=== PATIENT | male | born 1975 | race Caucasian/White ===

== ENCOUNTER → 2016-12-29 | Outpatient (CLI) | payer BC ==
[2016-12-29 10:44] LABS: ESTIMATED AVERAGE GLUCOSE 140 mg/dl; HA1C FLAG Normal (Normal)
== END | disposition home or self-care (01) ==
LOC: C.LAB1850 09:16
PROVIDERS: ATTEND Internal Medicine
DX: I10 Essential (primary) hypertension (principal)

== ENCOUNTER → 2017-03-04 | Outpatient (CLI) | payer BC ==
[2017-03-04 13:22] LABS: BASO % 0.8 %; BASO ABS # 0.09 K/uL (0-0.2); COMPLETE YES; EOS % 3.9 %; HEMATOCRIT 46.7 % (42-52); IG% 0.2 %; LYMPH % 17.8 %; LYMPH ABS # 2.03 K/uL (1.2-3.4); MEAN CELL VOLUME 81.9 fL (80-100); MEAN CORPUSCULAR HEMOGLOBIN 27.7 pg (25-34); MEAN CORPUSCULAR HGB CONC 33.8 g/dl (32-36); MONO % 5.1 %; NEUT % 72.2 %; PLATELET COUNT 243 K/uL (130-400); WHITE BLOOD COUNT 11.39 K/uL (4.8-10.8)
[2017-03-04 13:46] LABS: ALT/SGPT 36 U/L (12-78); AST/SGOT 13 U/L (15-37); BLOOD UREA NITROGEN 25 mg/dl (7-18); BUN/CREATININE RATIO 15.8 (10-20); CALCIUM 9.3 mg/dl (8.5-10.1); CARBON DIOXIDE 31 mmol/L (21-32); CHLORIDE 105 mmol/L (98-107); GLUCOSE 123 mg/dl (70-99); POTASSIUM 4.3 mmol/L (3.5-5.1); SODIUM 139 mmol/L (136-145)
[2017-03-04 13:47] LABS: ESTIMATED AVERAGE GLUCOSE 143 mg/dl; HA1C FLAG Normal (Normal)
[2017-03-04 13:49] LABS: CHOLESTEROL 129 mg/dl (0-200); CHOLESTEROL/HDL RATIO 2.9; HDL CHOLESTEROL 44 mg/dl; LDL CHOLESTEROL CALCULATED 55 mg/dl; TRIGLYCERIDES 149 mg/dl (0-150); VERY LOW DENSITY LIPOPROT CALC 30 mg/dl
[2017-03-04 15:21] LABS: RATIO 217.7 mcg/mg (0-30.0)
== END | disposition home or self-care (01) ==
LOC: C.LAB1850 12:44
PROVIDERS: ATTEND Internal Medicine
DX: E78.5 Hyperlipidemia, unspecified (principal)

== ENCOUNTER → 2017-06-15 | Outpatient (CLI) | payer BC ==
[2017-06-15 12:14] LABS: ESTIMATED AVERAGE GLUCOSE 148 mg/dl; HA1C FLAG Normal (Normal)
== END | disposition home or self-care (01) ==
LOC: C.LAB1850 10:45
PROVIDERS: ATTEND Internal Medicine
DX: E78.5 Hyperlipidemia, unspecified (principal)

== ENCOUNTER → 2017-09-15 | Outpatient (CLI) | payer BC ==
--- NOTE | 2017-09-15 09:49 | DIAGNOSTIC IMAGING REPORT ---
ULTRASOUND L VENOUS DOPP LOWER EXT UNILAT CLINICAL HISTORY: M79.605 left leg pain COMPARISON STUDY: No previous studies for comparison. FINDINGS: Real-time and color flow Doppler imaging were performed. Flow was seen within the femoral, popliteal and calf veins with no intraluminal thrombus demonstrated. The saphenous vein is patent. No popliteal cyst is visualized. IMPRESSION: No evidence of left lower extremity DVT. Electronically signed by: Ebenezer Martinez M.D. 09/15/2017 9:48 AM Dictated Date/Time: 09/15/2017 9:47 AM
== END | disposition home or self-care (01) ==
LOC: C.ULTR 09:07
PROVIDERS: ATTEND Physician Assistant
DX: M79.605 Pain in left leg (principal)

== ENCOUNTER → 2017-09-28 | Outpatient (CLI) | payer BC ==
--- NOTE | 2017-09-28 08:41 | DIAGNOSTIC IMAGING REPORT ---
LEFT KNEE RADIOGRAPHS WITH COMPARISON STANDING AP RADIOGRAPH OF THE RIGHT KNEE CLINICAL HISTORY: Left knee pain. COMPARISON: None FINDINGS: Comparison standing AP radiograph of the knee demonstrates minimal osteophytosis within the medial and lateral compartments. Alignment of the left knee is in anatomic. There is no fracture, joint effusion or osseous lesion. Joint spaces are preserved. There is mild osteophytosis of the lateral patellofemoral compartments. IMPRESSION: 1. No acute fracture or joint effusion of the left knee. 2. Slight lateral patellar tilt. 3. Preserved joint spaces with mild osteophytosis within the lateral and patellofemoral compartments of the left knee. Electronically signed by: Allan Kevin M.D. 09/28/2017 8:40 AM Dictated Date/Time: 09/28/2017 8:34 AM
== END | disposition home or self-care (01) ==
LOC: C.RDSM 10:07
PROVIDERS: ATTEND Physician Assistant
DX: M25.562 Pain in left knee (principal); M25.762 Osteophyte, left knee

== ENCOUNTER → 2017-10-06 | Outpatient (CLI) | payer BC ==
[2017-10-06 12:16] LABS: BASO % 0.9 %; BASO ABS # 0.09 K/uL (0-0.2); COMPLETE YES; EOS % 5.8 %; IG% 0.3 %; LYMPH % 28.3 %; LYMPH ABS # 2.71 K/uL (1.2-3.4); MEAN CELL VOLUME 83.3 fL (80-100); MEAN CORPUSCULAR HEMOGLOBIN 28.5 pg (25-34); MEAN CORPUSCULAR HGB CONC 34.2 g/dl (32-36); MEAN PLATELET VOLUME 10.2 fL (7.4-10.4); MONO % 6.7 %; PLATELET COUNT 231 K/uL (130-400); RED BLOOD COUNT 5.76 M/uL (4.7-6.1); WHITE BLOOD COUNT 9.56 K/uL (4.8-10.8)
[2017-10-06 12:20] LABS: URINE APPEARANCE CLEAR (CLEAR); URINE BILIRUBIN NEG (NEG); URINE COLOR ORANGE; URINE NITRITE NEG (NEG); URINE PH 6.5 (4.5-7.5); URINE SPECIFIC GRAVITY 1.014 (1.000-1.030); UROBILINOGEN NEG (NEG)
[2017-10-06 12:23] LABS: MANUAL MICROSCOPIC REQUIRED? NO; REVIEW REQ? NO
[2017-10-06 12:44] LABS: ALT/SGPT 39 U/L (12-78); AST/SGOT 19 U/L (15-37); BLOOD UREA NITROGEN 23 mg/dl (7-18); BUN/CREATININE RATIO 14.6 (10-20); CALCIUM 9.1 mg/dl (8.5-10.1); CARBON DIOXIDE 30 mmol/L (21-32); CHLORIDE 102 mmol/L (98-107); CHOLESTEROL 159 mg/dl (0-200); CREATININE 1.59 mg/dl (0.60-1.40); GLUCOSE 83 mg/dl (70-99); POTASSIUM 4.3 mmol/L (3.5-5.1); SODIUM 137 mmol/L (136-145); TRIGLYCERIDES 120 mg/dl (0-150); VERY LOW DENSITY LIPOPROT CALC 24 mg/dl
[2017-10-06 12:48] LABS: ESTIMATED AVERAGE GLUCOSE 157 mg/dl; HA1C FLAG Normal (Normal)
[2017-10-06 12:54] LABS: CHOLESTEROL/HDL RATIO 3.2; HDL CHOLESTEROL 49 mg/dl; LDL CHOLESTEROL CALCULATED 86 mg/dl; THYROID STIMULATING HORMONE 0.935 uIu/ml (0.300-4.500)
[2017-10-06 13:02] LABS: CREATININE RANDOM URINE 92.6 mg/dl
[2017-10-06 13:12] LABS: RATIO 163.1 mcg/mg (0-30.0)
== END | disposition home or self-care (01) ==
LOC: C.LAB1850 11:24
PROVIDERS: ATTEND Internal Medicine
DX: Z86.39 Personal history of other endocrine, nutritional and metabolic disease (principal)

== ENCOUNTER → 2017-10-27 | Outpatient (CLI) | payer BC ==
--- NOTE | 2017-10-27 14:12 | DIAGNOSTIC IMAGING REPORT ---
LUMBAR SPINE MIN 4 VIEWS CLINICAL HISTORY: Left leg radiculopathy COMPARISON STUDY: No previous studies for comparison. FINDINGS: There is a minimal spinal curvature convex to the left. No acute fractures or subluxations are visualized. There is mild disc space narrowing at the L2-3 and L5-S1 levels. There is anterior osteophyte arising from the L3 vertebral body superiorly. There is no pathologic bowel dilatation. IMPRESSION: Mild degenerative change. No fractures or subluxations are visualized. Electronically signed by: Ebenezer Martinez M.D. 10/27/2017 2:11 PM Dictated Date/Time: 10/27/2017 2:10 PM
== END | disposition home or self-care (01) ==
LOC: C.RDSM 10:30
PROVIDERS: ATTEND Physician Assistant
DX: M79.662 Pain in left lower leg (principal); M51.37 Other intervertebral disc degeneration, lumbosacral region

== ENCOUNTER → 2017-11-25 | Outpatient (CLI) | payer BC ==
--- NOTE | 2017-11-25 09:40 | DIAGNOSTIC IMAGING REPORT ---
MRI OF THE LUMBAR SPINE WITHOUT IV CONTRAST CLINICAL HISTORY: Lumbosacral radiculopathy. Sensory abnormalities. COMPARISON STUDY: Radiographs of the lumbar spine dated 10/27/2017. TECHNIQUE: MRI of the lumbar spine is performed utilizing various T1 and T2-weighted sequences in the axial and sagittal planes. IV contrast was not administered for this examination. FINDINGS: Lumbar spine: Vertebral body height and alignment are maintained throughout the lumbar spine. There is straightening of the lumbar lordosis. The transverse and spinous processes are intact. No destructive bony lesion is seen. Minimal endplate edema is noted at L5-S1. Chronic degenerative endplate change is seen at L2-L3. There is no evidence of spondylolysis. Intervertebral discs: Mild degenerative disc desiccation is seen throughout the lumbar spine. Moderate loss of height is present at L5-S1. Mild loss of height is seen at L2-L3. Spinal cord: The visualized spinal cord is normal in morphology and signal intensity. The conus medullaris terminates at the L1-L2 interspace. The nerve roots of the cauda equina are normal in morphology. L1-L2: Unremarkable. L2-L3: There is minimal disc bulge. The central canal and neural foramina are patent. L3-L4: Unremarkable. L4-L5: There is broad-based posterior disc bulge with annular fissure. There is no significant acquired compromise of the central canal. There is bilateral subarticular stenosis, left greater than right. The disc bulge abuts the exiting bilateral L4 nerve roots as well as the transiting bilateral L5 nerve roots. L5-S1: There is a lateral disc bulge eccentric to the left. This causes severe left-sided subarticular stenosis and impinges on the exiting left L5 nerve root. This also abuts the transiting left S1 nerve root. There is no significant acquired compromise of the central canal. The neural foramina are patent. Sacrum: The visualized sacrum is normal in morphology and signal intensity. Soft tissues: The paraspinous soft tissues are normal as visualized. The partially imaged retroperitoneal structures are grossly unremarkable but incompletely evaluated. IMPRESSION: 1. There is no disc herniation or significant acquired compromise of the central canal. 2. A lateral disc bulge eccentric to the left at L5 impinges on the exiting left L5 and the transiting left S1 nerve roots. 3. Broad-based posterior disc bulge at L4-L5 also likely abuts the exiting bilateral and transiting nerve roots. 4. See above discussion for detailed level by level analysis. 5. No bony abnormality is identified. Dictated: 11/25/2017 9:20 AM Transcribed: 11/25/2017 9:38 AM [facility] Electronically signed by: Dick Triplett M.D. 11/25/2017 9:39 AM Dictated Date/Time: 11/25/2017 9:20 AM
== END | disposition home or self-care (01) ==
LOC: C.MRI 08:10
PROVIDERS: ATTEND Internal Medicine
DX: R20.9 Unspecified disturbances of skin sensation (principal); M51.17 Intervertebral disc disorders with radiculopathy, lumbosacral region

== ENCOUNTER → 2018-02-03 | Outpatient (CLI) | payer BC ==
[2018-02-03 14:02] LABS: HEMOGLOBIN A1C 7.8 % (4.5-5.6)
== END | disposition home or self-care (01) ==
LOC: C.LAB1850 11:55
PROVIDERS: ATTEND Internal Medicine
DX: E10.29 Type 1 diabetes mellitus with other diabetic kidney complication (principal)

== ENCOUNTER → 2018-05-17 | Outpatient (CLI) | payer BC ==
[2018-05-17 09:29] LABS: BASO % 1.2 %; BASO ABS # 0.11 K/uL (0-0.2); EOS % 5.2 %; HEMATOCRIT 51.5 % (42-52); HEMOGLOBIN 17.9 g/dL (14.0-18.0); IG# 0.03 K/uL (0.00-0.02); LYMPH ABS # 2.19 K/uL (1.2-3.4); MEAN CELL VOLUME 82.3 fL (80-100); MEAN CORPUSCULAR HEMOGLOBIN 28.6 pg (25-34); MEAN CORPUSCULAR HGB CONC 34.8 g/dl (32-36); MEAN PLATELET VOLUME 10.7 fL (7.4-10.4); MONO % 8.8 %; MONO ABS # 0.84 K/uL (0.11-0.59); NEUT % 61.5 %; NEUT ABS # 5.86 K/uL (1.4-6.5); PLATELET COUNT 196 K/uL (130-400); RED CELL DISTRIBUTION WIDTH CV 13.6 % (11.5-14.5); RED CELL DISTRIBUTION WIDTH SD 40.6 fL (36.4-46.3); WHITE BLOOD COUNT 9.53 K/uL (4.8-10.8)
[2018-05-17 10:14] LABS: ALBUMIN 3.9 gm/dl (3.4-5.0); ALT/SGPT 35 U/L (12-78); AST/SGOT 18 U/L (15-37); BLOOD UREA NITROGEN 24 mg/dl (7-18); CALCIUM 9.1 mg/dl (8.5-10.1); CARBON DIOXIDE 31 mmol/L (21-32); CHOLESTEROL 141 mg/dl (0-200); CREATININE 1.36 mg/dl (0.60-1.40); GLUCOSE 106 mg/dl (70-99); LDL CHOLESTEROL CALCULATED 78 mg/dl; POTASSIUM 3.8 mmol/L (3.5-5.1); SODIUM 138 mmol/L (136-145); URIC ACID 8.4 mg/dl (2.6-7.2)
== END | disposition home or self-care (01) ==
LOC: C.LAB1850 08:28
PROVIDERS: ATTEND Internal Medicine
DX: E78.5 Hyperlipidemia, unspecified (principal)